=== PATIENT | male | born 1990 | race Caucasian/White ===

== ENCOUNTER 2017-01-01 16:22 | Emergency (ER) | payer OTHER ==
[2017-01-01 16:46] VITALS: BP 134/61
[2017-01-01] MEDS ORDERED: OXYCODONE-ACETAMINOPHEN 5-325 MG TABLET PO ONE (17:14)
--- NOTE | 2017-01-01 17:20 | RADIOLOGY REPORT (SQ) ---
EXAM DESCRIPTION: HAND RIGHT 3 VIEWS COMPLETED DATE/TIME: 01/01/2017 4:57 pm REASON FOR STUDY: pain s/p injury COMPARISON: None. EXAM PARAMETERS: NUMBER OF VIEWS: Three views. TECHNIQUE: AP, lateral and oblique radiographic images acquired of the right hand. LIMITATIONS: None. FINDINGS: MINERALIZATION: Normal. BONES: There is a comminuted fracture involving the proximal end of the 5th metacarpal. Fracture paola es appear to extend to the proximal articular surface. No other evidence for fracture is seen. JOINTS: No effusions. SOFT TISSUES: No soft tissue swelling. No foreign body. OTHER: No other significant finding. IMPRESSION: Fracture involving the proximal end of the 5th metacarpal. TECHNICAL DOCUMENTATION: JOB ID: [id number] [employer]- All Rights Reserved
--- NOTE | 2017-01-01 17:34 | ER Document Report ---
HPI - HPI Patient complains to provider of: Hand injury Onset: This afternoon Onset/Duration: Sudden Quality of pain: Sharp Pain Level: 3 Context: Patient states that he was working in the garage and tripped over a weight stand. Patient states that a 40 pound weight fell onto his right hand. Patient is right-hand dominant. Associated Symptoms: Other - Right hand injury Exacerbated by: Movement Relieved by: Denies Similar symptoms previously: No Recently seen / treated by doctor: No - ROS ROS below otherwise negative: Yes Systems Reviewed and Negative: Yes All other systems reviewed and negative - CONSTITUTIONAL Constitutional: DENIES: Fever - NEURO Neurology: DENIES: Weakness - CARDIOVASCULAR Cardiovascular: DENIES: Chest pain - GASTROINTESTINAL Gastrointestinal: DENIES: Nausea - REPRODUCTIVE Reproductive: DENIES: : - MUSCULOSKELETAL Musculoskeletal: REPORTS: Extremity pain, Swelling - DERM Skin Color: Normal, [place] Past Medical History - General Information source: Patient - Social History Smoking Status: Never Smoker Chew tobacco use (# tins/day): Yes Frequency of alcohol use: Social Drug Abuse: None Occupation: Active duty Lives with: Spouse/Significant other Family History: Reviewed & Not Pertinent, CAD - Medical History Medical History: Negative - Past Medical History Cardiac Medical History: Denies: Hx Coronary Artery Disease Renal/ Medical History: Denies: Hx Peritoneal Dialysis Past Surgical History: Reports: Other - Surgery 6 months ago for gynecomastia - Immunizations Immunizations up to date: Yes Hx Diphtheria, Pertussis, Tetanus Vaccination: Yes Vertical Provider Document - CONSTITUTIONAL Agree With Documented VS: Yes Exam Limitations: No Limitations General Appearance: WD/WN, No Apparent Distress - INFECTION CONTROL TRAVEL OUTSIDE OF THE [place] IN LAST 30 DAYS: No - HEENT HEENT: Atraumatic, Normocephalic - NECK Neck: Normal Inspection - RESPIRATORY Respiratory: No Respiratory Distress O2 Sat by Pulse Oximetry: 100 - CARDIOVASCULAR Pulses: Normal: Radial - MUSCULOSKELETAL/EXTREMETIES Musculoskeletal/Extremeties: MAEW, FROM, Tender - Patient with tenderness over proximal right fourth and fifth metacarpal, no deformity, Edema. negative: Eccymosis - NEURO Level of Consciousness: Awake, Alert, Appropriate Motor/Sensory: No Motor Deficit, No Sensory Deficit - DERM Integumentary: Warm, Dry, No Rash Course - Vital Signs Vital signs: Temp Pulse Resp BP Pulse Ox 98.0 F 76 16 134/61 H 100 01/01/17 16:45 01/01/17 16:45 01/01/17 16:45 01/01/17 16:45 01/01/17 16:45 - Diagnostic Test Radiology reviewed: Image reviewed, Reports reviewed Procedures - Immobilization Right Hand Pre-Proc Neuro Vasc Exam: Normal Immobilizer type: Ulnar Performed by: PCT Post-Proc Neuro Vasc Exam: Normal Alignment checked and good: Yes Discharge - Discharge Clinical Impression: Closed fracture of 5th metacarpal Qualifiers: Encounter type: initial encounter Metacarpal location: base Fracture alignment : displaced Laterality: right Qualified Code(s): S62.316A - Displaced fracture of base of fifth metacarpal bone, right hand, initial encounter for closed fracture Condition: Stable Disposition: HOME, SELF-CARE Instructions: Fractured Fifth Metacarpal ([facility]), Ice & Elevation ([facility]), Oral Narcotic Medication ([facility]), Splint Precautions ([facility]) Additional Instructions: Return immediately for any new or worsening symptoms Followup with your primary care provider, call tomorrow to make a followup appointment Follow-up with orthopedic doctor for further evaluation. Follow-up with your primary doctor tomorrow to get a referral to orthopedic doctor for further management. Prescriptions: Oxycodone HCl/Acetaminophen [Percocet 5-325 mg Tablet] 1 tab PO ASDIR PRN #20 tablet PRN Reason: Referrals: CLAUDIA RHODES MD [ACTIVE STAFF] - Follow up tomorrow
== END 2017-01-01 17:45 | disposition home or self-care (01) ==
LOC: ER 16:22
PROC: 2W3CX1Z Immobilization of Right Lower Arm using Splint (ICD-10-PCS; principal; 2017-01-01)
DX: S62.316A Displaced fracture of base of fifth metacarpal bone, right hand, initial encounter for closed fracture (principal); W20.8XXA Other cause of strike by thrown, projected or falling object, initial encounter; Y92.008 Other place in unspecified non-institutional (private) residence as the place of occurrence of the external cause; Z72.0 Tobacco use
CPT/HCPCS: 99283

== ENCOUNTER 2017-10-16 19:35 | Emergency (ER) | payer OTHER ==
[2017-10-16 19:41] VITALS: BP 138/68
--- NOTE | 2017-10-16 19:54 | ER Document Report ---
HPI - HPI Patient complains to provider of: Sore throat Onset: Yesterday Onset/Duration: Gradual Quality of pain: Achy Pain Level: 3 Context: Patient presents complaining of sore throat that started yesterday. Patient reports generalized body aches loss of appetite and subjective fever yesterday. Patient states that he took some of his 's amoxicillin for his symptoms. Patient has a baby at home and does not want to get sick. Associated Symptoms: Body/muscle aches, Fever, Sore throat. denies: Earache Exacerbated by: Denies Relieved by: Denies Similar symptoms previously: Yes Recently seen / treated by doctor: No - ROS ROS below otherwise negative: Yes Systems Reviewed and Negative: Yes All other systems reviewed and negative - CONSTITUTIONAL Constitutional: REPORTS: Fever - EENT EENT: REPORTS: Sore Throat - NEURO Neurology: DENIES: Headache - RESPIRATORY Respiratory: DENIES: Coughing - GASTROINTESTINAL Gastrointestinal: DENIES: Nausea, Patient vomiting - REPRODUCTIVE Reproductive: DENIES: : - DERM Skin Color: Normal Skin Problems: None Past Medical History - General Information source: Patient - Social History Smoking Status: Never Smoker Frequency of alcohol use: None Drug Abuse: None Occupation: Active duty Lives with: Family Family History: Reviewed & Not Pertinent, CAD - Past Medical History Cardiac Medical History: Denies: Hx Coronary Artery Disease Renal/ Medical History: Denies: Hx Peritoneal Dialysis Musculoskeltal Medical History: Reports Hx Arthritis Past Surgical History: Reports: Other - Surgery 6 months ago for gynecomastia - Immunizations Immunizations up to date: Yes Hx Diphtheria, Pertussis, Tetanus Vaccination: Yes Vertical Provider Document - CONSTITUTIONAL Agree With Documented VS: Yes Exam Limitations: No Limitations General Appearance: WD/WN, No Apparent Distress - INFECTION CONTROL TRAVEL OUTSIDE OF THE [place] IN LAST 30 DAYS: No - HEENT HEENT: Atraumatic, Normocephalic, Pharyngeal Exudate, Pharyngeal Tenderness, Pharyngeal Erythema. negative: Tympanic Membrane Red, Tympanic Membrane Bulging - NECK Neck: Normal Inspection, Supple. negative: Lymphadenopathy-Left, Lymphadenopathy-Right - RESPIRATORY Respiratory: Breath Sounds Normal, No Respiratory Distress - CARDIOVASCULAR Cardiovascular: Regular Rate, Regular Rhythm, No Murmur - BACK Back: Normal Inspection - MUSCULOSKELETAL/EXTREMETIES Musculoskeletal/Extremeties: GUERLINE MCNAMARA - NEURO Level of Consciousness: Awake, Alert, Appropriate Motor/Sensory: No Motor Deficit - DERM Integumentary: Warm, Dry, No Rash Course - Vital Signs Vital signs: Temp Pulse Resp BP Pulse Ox 99.2 F 86 20 138/68 H 97 10/16/17 19:40 10/16/17 19:40 10/16/17 19:40 10/16/17 19:40 10/16/17 19:40 Discharge - Discharge Clinical Impression: Tonsillitis Condition: Stable Disposition: HOME, SELF-CARE Instructions: Amoxicillin ([facility]), Use of Wpul-Clm-Krgvdsh Ibuprofen ([facility]), Tonsillitis ([facility]) Additional Instructions: Return immediately for any new or worsening symptoms Followup with your primary care provider, call tomorrow to make a followup appointment Prescriptions: Naproxen [Naprosyn 250 Nmg Tablet] 1 tab PO BID #14 tablet Penicillin V Potassium [Penicillin Vk 500 mg Tablet] 500 mg PO BID #20 tablet Referrals: [facility] [Provider Group] - Follow up as needed
== END 2017-10-16 20:02 | disposition home or self-care (01) ==
LOC: ER 19:35
DX: J03.90 Acute tonsillitis, unspecified (principal); M79.1 Myalgia; R63.0 Anorexia; R50.9 Fever, unspecified
CPT/HCPCS: 87070; 99283

== ENCOUNTER 2017-11-09 19:07 | Emergency (ER) | payer OTHER ==
[2017-11-09] MEDS ORDERED: CEFTRIAXONE 1 GM/D5W RTU 1 GM/50 ML RTUPB IV ONE (20:18)
[2017-11-09] MEDS ORDERED: SULFAMETHOXAZOLE/TRIMETHOPRIM 800-160 MG TABLET PO ONE (20:19)
--- NOTE | 2017-11-09 20:20 | ER Document Report ---
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 He worked all day today and noticed that his left lower leg got red and swollen and painful. He has a pustule on the proximal medial left lower leg. I had Dr. Molina evaluate the patient in the room and he recommended. TRAVEL OUTSIDE OF THE [place] IN LAST 30 DAYS: No - Related Data Allergies/Adverse Reactions: No Known Allergies Allergy (Verified 11/09/17 19:13) Past Medical History - Past Medical History Cardiac Medical History: Denies: Hx Coronary Artery Disease Renal/ Medical History: Denies: Hx Peritoneal Dialysis Musculoskeltal Medical History: Reports Hx Arthritis Past Surgical History: Reports: Other - Surgery 6 months ago for gynecomastia - Immunizations Immunizations up to date: Yes Hx Diphtheria, Pertussis, Tetanus Vaccination: Yes Physical Exam - Vital signs Vitals: Temp Pulse Resp BP Pulse Ox 98.7 F 92 20 141/75 H 95 11/09/17 19:23 11/09/17 19:23 11/09/17 19:23 11/09/17 19:23 11/09/17 19:23 Course - Vital Signs Vital signs: Temp Pulse Resp BP Pulse Ox 98.7 F 92 20 141/75 H 95 11/09/17 19:23 11/09/17 19:23 11/09/17 19:23 11/09/17 19:23 11/09/17 19:23
--- NOTE | 2017-11-09 21:18 | RADIOLOGY REPORT (SQ) ---
EXAM DESCRIPTION: U/S EXTREMITY NONVASCULAR COMP COMPLETED DATE/TIME: 11/09/2017 9:03 pm REASON FOR STUDY: subq gas, fluid collection? has extensive cellulitis COMPARISON: None. TECHNIQUE: Dynamic and static grayscale images acquired of the localized site of clinical concern an d recorded on PACS. Additional selected color Doppler and spectral images recorded. SITE OF CONCERN: Medial left calf LIMITATIONS: None. FINDINGS: SKIN AND SUBCUTANEOUS TISSUES: Subcutaneous edema. No abnormal fluid collection. DEEP SOFT TISSUES/MUSCLES: No masses. No fluid collections. No edema. VASCULAR: No increased or decreased vascularity. No occlusions. OTHER: No other significant finding. IMPRESSION: Subcutaneous edema. No abnormal fluid collection. TECHNICAL DOCUMENTATION: JOB ID: [id number] [employer]- All Rights Reserved Reading location - IP/workstation name: [email or web address]
[2017-11-09 21:28] LABS: ABSOLUTE EOSINOPHILS # (AUTO) 0.1 10^3/uL (0.0-0.6); ABSOLUTE MONOCYTES (AUTO) 0.9 10^3/uL (0.1-1.4); ABSOLUTE NEUT (AUTO) 6.5 10^3/uL (1.7-8.2); BASOPHILS % (AUTO) 0.4 % (0-2); EOSINOPHILS % (AUTO) 1.1 % (0-6); LYMPHOCYTES % (AUTO) 20.9 % (13-45); MEAN CORPUSCULAR HEMOGLOBIN 29.2 pg (27.0-33.4); MEAN CORPUSCULAR HGB CONC 35.3 g/dL (32.0-36.0); MEAN CORPUSCULAR VOLUME 83 fl (80-97); MONOCYTES % (AUTO) 9.6 % (3-13); PLATELET COUNT 245 10^3/uL (150-450); RED CELL DISTRIBUTION WIDTH 12.7 % (11.5-14.0); TOTAL CELLS COUNTED % (AUTO) 100 %; WHITE BLOOD COUNT 9.6 10^3/uL (4.0-10.5)
--- NOTE | 2017-11-09 22:39 | ER Document Report ---
ED General - General Chief Complaint: Insect Bite Stated Complaint: POSSIBLE INSECT BITE Time Seen by Provider: 11/09/17 20:15 Mode of Arrival: Ambulatory Information source: Patient Notes: Patient presents to the ED with complaints of LLE erythema and edema. Patient says that yesterday he was on a riding shredder tender peat when he brushed up against a tree. He felt something "prick" him. He worked all day then noticed the redness and swelling. He says that it has been worsening over the last day. Denies recent travel, surgery, calf pain, hx of DVT/PE, hormone use. TRAVEL OUTSIDE OF THE [place] IN LAST 30 DAYS: No - HPI Onset: Yesterday Onset/Duration: Gradual Quality of pain: Achy, Burning Severity: Mild Associated symptoms: Leg swelling Exacerbated by: Denies Relieved by: Denies Similar symptoms previously: No Recently seen / treated by doctor: No - Related Data Allergies/Adverse Reactions: No Known Allergies Allergy (Verified 11/09/17 19:13) Past Medical History - General Information source: Patient - Social History Smoking Status: Never Smoker Family History: Reviewed & Not Pertinent, CAD - Past Medical History Cardiac Medical History: Denies: Hx Coronary Artery Disease Renal/ Medical History: Denies: Hx Peritoneal Dialysis Musculoskeltal Medical History: Reports Hx Arthritis Past Surgical History: Reports: Other - Surgery 6 months ago for gynecomastia - Immunizations Immunizations up to date: Yes Hx Diphtheria, Pertussis, Tetanus Vaccination: Yes Review of Systems - Review of Systems Constitutional: No symptoms reported EENT: No symptoms reported Cardiovascular: No symptoms reported Respiratory: No symptoms reported Gastrointestinal: No symptoms reported Musculoskeletal: Leg swelling Skin: Change in color, Rash Hematologic/Lymphatic: No symptoms reported Neurological/Psychological: No symptoms reported -: Yes All other systems reviewed and negative Physical Exam - Vital signs Vitals: Temp Pulse Resp BP Pulse Ox 98.7 F 92 20 141/75 H 95 11/09/17 19:23 11/09/17 19:23 11/09/17 19:23 11/09/17 19:23 11/09/17 19:23 Interpretation: Normal - Notes Notes: PHYSICAL EXAMINATION: GENERAL: Well-appearing, well-nourished and in no acute distress. HEAD: Atraumatic, normocephalic. EYES: Pupils equal round and reactive to light, extraocular movements intact, sclera anicteric, conjunctiva are normal. ENT: Nares patent, oropharynx clear without exudates. Moist mucous membranes. NECK: Normal range of motion, supple without lymphadenopathy LUNGS: Breath sounds clear to auscultation bilaterally and equal. No wheezes rales or rhonchi. HEART: Regular rate and rhythm without murmurs ABDOMEN: Soft, nontender, nondistended abdomen. No guarding, no rebound. No masses appreciated. Musculoskeletal: Normal range of motion, no pitting or edema. No cyanosis. Erythema, warmth, edema, tenderness to the left medial thigh. NEUROLOGICAL: Cranial nerves grossly intact. Normal speech, normal gait. Normal sensory, motor exams PSYCH: Normal mood, normal affect. SKIN: Erythema, pain, warmth, edema to the left medial thigh Course - Re-evaluation Re-evalutation: 11/09/17 23:34 Labs and imaging obtained. No acute process identified. No DVT. Patient given 1G of rocephin in the ED. I will discharge the patient on on oral antibiotics. I instructed the patient to take medication as directed, to follow up with his PCP this week for re-evaluation, and to return for worsening symptoms. - Vital Signs Vital signs: Temp Pulse Resp BP Pulse Ox 98.7 F 92 20 141/75 H 95 11/09/17 19:23 11/09/17 19:23 11/09/17 19:23 11/09/17 19:23 11/09/17 19:23 - Laboratory Result Diagrams: 11/09/17 21:10 11/09/17 22:40 Laboratory results interpreted by me: 11/09/17 11/09/17 21:10 22:40 RBC 5.80 H Sodium 145.1 H Discharge - Discharge Clinical Impression: Cellulitis Qualifiers: Site of cellulitis: extremity Site of cellulitis of extremity: lower extremity Laterality: left Qualified Code(s): L03.116 - Cellulitis of left lower limb Condition: Good Disposition: HOME, SELF-CARE Instructions: Cellulitis ([facility]) Prescriptions: Cephalexin Monohydrate [Keflex 500 mg Capsule] 500 mg PO BID 7 Days #14 capsule Sulfamethoxazole/Trimethoprim [Bactrim Ds Tablet] 1 each PO BID #14 tablet Referrals: OLIVER JARQUIN MD [COMMUNITY BASED STAFF] - Follow up as needed
[2017-11-09 23:08] LABS: ALANINE AMINOTRANSFERASE 39 U/L (21-72); ALBUMIN 4.5 g/dL (3.5-5.0); ALKALINE PHOSPHATASE 93 U/L (38-126); ANION GAP 12 (5-19); ASPARTATE AMINO TRANSFERASE 23 U/L (17-59); BILIRUBIN,DIRECT 0.3 mg/dL (0.0-0.4); BILIRUBIN,TOTAL 0.6 mg/dL (0.2-1.3); BLOOD UREA NITROGEN 14 mg/dL (7-20); CALCIUM 9.5 mg/dL (8.4-10.2); CARBON DIOXIDE 28 mmol/L (22-30); CHLORIDE 105 mmol/L (98-107); GLUCOSE 89 mg/dL (75-110); POTASSIUM 4.2 mmol/L (3.6-5.0); SODIUM 145.1 mmol/L (137-145); TOTAL PROTEIN 7.3 g/dL (6.3-8.2)
[2017-11-10 00:12] VITALS: BP 138/75
== END 2017-11-10 00:13 | disposition home or self-care (01) ==
LOC: ER 19:07
DX: L03.116 Cellulitis of left lower limb (principal); R60.0 Localized edema
CPT/HCPCS: 99284; 96365; 36415; 87040; 85025; 80053; 76881; J0696